=== PATIENT | female | born 1935 | race African-American/Black ===

== ENCOUNTER 2019-08-13 00:33 | Emergency (ER) | payer OTHER | END 2019-08-13 03:09 | disposition home or self-care (01) | LOC: ER 00:33 | DX: I12.0 Hypertensive chronic kidney disease with stage 5 chronic kidney disease or end stage renal disease (principal); E11.22 Type 2 diabetes mellitus with diabetic chronic kidney disease; N18.5 Chronic kidney disease, stage 5; E87.5 Hyperkalemia; N39.0 Urinary tract infection, site not specified; R31.9 Hematuria, unspecified; G89.29 Other chronic pain; Z85.528 Personal history of other malignant neoplasm of kidney; Z90.5 Acquired absence of kidney; Z90.49 Acquired absence of other specified parts of digestive tract; Z79.899 Other long term (current) drug therapy; Z79.4 Long term (current) use of insulin; Z88.8 Allergy status to other drugs, medicaments and biological substances; Z88.5 Allergy status to narcotic agent; Z88.0 Allergy status to penicillin; Z88.2 Allergy status to sulfonamides ==